=== PATIENT | female | born 1985 | race Caucasian/White ===

== ENCOUNTER 2016-09-06 10:26 | Emergency (ER) | payer MEDICAID ==
--- NOTE | 2016-09-06 11:20 | UC ---
Respiratory Complaint HPI - HPI Summary HPI Summary: chest congestion chest and back hurt to take a deep breath, coughing so hard sometimes she throws-up - History of Current Complaint Chief Complaint: UCRespiratory Stated Complaint: URI Time Seen by Provider: 09/06/16 10:44 Hx Obtained From: Patient Hx Last Menstrual Period: IUD- 08/29/16 ?: No Onset/Duration: Sudden Onset, Lasting Days, Still Present Timing: Constant Severity Initially: Moderate Severity Currently: Moderate Character: Cough: Productive Aggravating Factors: Nothing Alleviating Factors: Bronchodilator Associated Signs And Symptoms: Positive: Chills, Pleuritic Chest Pain, URI, Nasal Congestion - Allergies/Home Medications Allergies/Adverse Reactions: Allergies Allergy/AdvReac Type Severity Reaction Status Date / Time Codeine Allergy Severe Hives Verified 09/06/16 10:45 Penicillins Allergy Unknown Unknown Verified 09/06/16 10:45 Reaction Details Baclofen Allergy Unknown Verified 09/06/16 10:45 Reaction Details Home Medications: Home Medications Dextromethorphan-Phenylephrine [Vicks Dayquil Cold & Flu 10-5-325 mg] 2 tab PO PRN 09/06/16 [History] Multiple Vitamin [Multi Vitamin] 1 tab PO DAILY 09/06/16 [History Confirmed ] Sertraline HCl [Zoloft] 50 mg PO BID 09/06/16 [History Confirmed 09/06/16] PMH/Surg Hx/FS Hx/Imm Hx Previously Healthy: No Endocrine History Of: Denies: Diabetes, Thyroid Disease Cardiovascular History Of: Denies: Cardiac Disorders, Hypertension, Pacemaker/ICD, Congestive Heart Failure Respiratory History Of: Reports: COPD, Asthma GI/ History Of: Reports: Renal Disease - TRAUMATIC INJURY 05/27/14 Denies: Ulcer Neurological History Of: Reports: Migraine Psychological History Of: Reports: Anxiety, Depression, Bipolar Disorder - Surgical History Surgical History: Yes Surgery Procedure, Year, and Place: 2 C-SECTIONS. scar tissue revision following c-sections; Tonsillectomy; Bilat Tubes - Family History Known Family History: Positive: None, Other - substance abuse disorder - Social History Occupation: Unemployed Lives: With Family Alcohol Use: Rare Substance Use Type: Marijuana Substance Use Comment - Amount & Last Used: ultram Smoking Status (MU): Current Every Day Smoker Type: Cigarettes Amount Used/How Often: 1/2 PPD Length of Time of Smoking/Using Tobacco: 16+ years Have You Smoked in the Last Year: Yes Household Exposure Type: Cigarettes Cessation Counseling: Counseled 3+Min - 10 Min - Immunization History Most Recent Influenza Vaccination: 04/2016 Most Recent Tetanus Shot: 2012 Most Recent Pneumonia Vaccination: never Review of Systems Constitutional: Chills, Fatigue Skin: Negative Eyes: Negative ENT: Sore Throat, Ear Ache, Nasal Discharge Respiratory: Cough Cardiovascular: Negative Gastrointestinal: Negative Genitourinary: Negative Motor: Negative Neurovascular: Negative Musculoskeletal: Negative Neurological: Negative Psychological: Negative All Other Systems Reviewed And Are Negative: Yes Physical Exam Triage Information Reviewed: Yes Appearance: Well-Appearing, No Pain Distress, Well-Nourished Vital Signs: Initial Vital Signs Temp 98.2 F 09/06/16 10:52 Pulse 106 09/06/16 10:52 Resp 20 09/06/16 10:52 Pulse Ox 97 09/06/16 10:52 Vital Signs Reviewed: Yes Eye Exam: Normal Eyes: Positive: Conjunctiva Clear ENT Exam: Normal ENT: Positive: Normal ENT inspection, Hearing grossly normal, Pharynx normal, TMs normal. Negative: Nasal congestion, Nasal drainage, Tonsillar swelling, Tonsillar exudate, Trismus, Muffled/hoarse voice Neck exam: Normal Neck: Positive: Supple, Nontender, No Lymphadenopathy Respiratory Exam: Normal Respiratory: Positive: Chest non-tender, Lungs clear, Normal breath sounds, No respiratory distress, No accessory muscle use Cardiovascular Exam: Normal Cardiovascular: Positive: RRR, No Murmur, Pulses Normal, Brisk Capillary Refill Musculoskeletal Exam: Normal Musculoskeletal: Positive: Strength Intact, ROM Intact, No Edema Neurological Exam: Normal Neurological: Positive: Alert, Muscle Tone Normal Psychological Exam: Normal Skin Exam: Normal UC Diagnostic Evaluation - Laboratory O2 Sat by Pulse Oximetry: 97 Respiratory Course/Dx - Course Course Of Treatment: continue inhalers, add prednisone and zithromax, smoking cesation information, follow with pcp - Differential Dx/Diagnosis Differential Diagnosis/HQI/PQRI: Bronchitis, Laryngitis, Lower Resp Infection, Sinusitis Provider Diagnoses: Bronchitis, Nicotine Dependant Discharge - Discharge Plan Condition: Stable Disposition: HOME Prescriptions: Azithromycin TAB* [Zithromax TAB (Z-JAYNA) 250 mg #6 tabs] 2 tab PO .TODAY, THEN 1 DAILY #1 jayna predniSONE TAB* [Deltasone TAB*] 10 mg PO DAILY #18 tab Patient Education Materials: Cigarette Smoking and Your Health (GEN), Acute Bronchitis (ED) Referrals: Oliver Syed MD [Primary Care Provider] - If Needed
[2016-09-06 11:49] VITALS: BP 117/81
== END 2016-09-06 11:47 | disposition home or self-care (01) ==
LOC: UCEAST 10:26
DX: J40 Bronchitis, not specified as acute or chronic (principal); F31.9 Bipolar disorder, unspecified; Z88.5 Allergy status to narcotic agent; Z88.0 Allergy status to penicillin; J44.9 Chronic obstructive pulmonary disease, unspecified; J45.909 Unspecified asthma, uncomplicated; F41.9 Anxiety disorder, unspecified; F17.210 Nicotine dependence, cigarettes, uncomplicated
CPT/HCPCS: 36415; 86703; 99212; G0463

== ENCOUNTER 2016-12-03 10:18 | Emergency (ER) | payer MEDICAID ==
[2016-12-03 10:59] VITALS: BP 115/80
--- NOTE | 2016-12-03 11:03 | UC ---
UC General HPI - HPI Summary HPI Summary: Generalize edema, confusion, worsen throat pain and swelling, voice is hoarse and getting worse - History of Current Complaint Chief Complaint: UCAlteredMentalStatus Stated Complaint: CONFUSED SWELLING THROUGH OUT BODY Time Seen by Provider: 12/03/16 10:33 Hx Obtained From: Patient Onset/Duration: Gradual Onset, Lasting Weeks, Still Present, Worse Since - past day Timing: Constant Onset Severity: Moderate Current Severity: Moderate Pain Intensity: 9 Pain Location at: throat and generalized body pain Associated Signs & Symptoms: Positive: Confusion - this morning, Diarrhea, Edema , Vomiting - Allergy/Home Medications Allergies/Adverse Reactions: Allergies Allergy/AdvReac Type Severity Reaction Status Date / Time Codeine Allergy Severe Hives Verified 09/06/16 10:45 Penicillins Allergy Unknown Unknown Verified 09/06/16 10:45 Reaction Details Baclofen Allergy Unknown Verified 09/06/16 10:45 Reaction Details Home Medications: Home Medications Advair 12/03/16 [History] PMH/Surg Hx/FS Hx/Imm Hx Previously Healthy: No - Hepatitis C Endocrine History Of: Denies: Diabetes, Thyroid Disease Cardiovascular History Of: Reports: Cardiac Disorders - heart murmur Denies: Hypertension, Pacemaker/ICD, Congestive Heart Failure Respiratory History Of: Reports: COPD, Asthma GI/ History Of: Reports: Renal Disease - TRAUMATIC INJURY 05/27/14 Denies: Ulcer Neurological History Of: Reports: Migraine Psychological History Of: Reports: Anxiety, Depression, Bipolar Disorder - Surgical History Surgical History: Yes Surgery Procedure, Year, and Place: 2 C-SECTIONS. scar tissue revision following c-sections; Tonsillectomy; Bilat Tubes - Family History Known Family History: Positive: None, Other - substance abuse disorder - Social History Occupation: Employed Full-time Lives: With Family Alcohol Use: Daily Alcohol Amount: wine Substance Use Type: Marijuana Substance Use Comment - Amount & Last Used: ultram Smoking Status (MU): Heavy Every Day Tobacco Smoker Type: Cigarettes Amount Used/How Often: 1 PPD Length of Time of Smoking/Using Tobacco: 16+ years Have You Smoked in the Last Year: Yes Household Exposure Type: Cigarettes - Immunization History Most Recent Influenza Vaccination: 04/2016 Most Recent Tetanus Shot: 2013 Most Recent Pneumonia Vaccination: never Review of Systems Constitutional: Chills, Fatigue Skin: Negative Eyes: Negative ENT: Sore Throat Respiratory: Negative Cardiovascular: Negative Gastrointestinal: Vomiting, Diarrhea Genitourinary: Negative Motor: Negative Neurovascular: Negative Musculoskeletal: Arthralgia, Edema, Myalgia Neurological: Negative Psychological: Negative All Other Systems Reviewed And Are Negative: Yes Physical Exam Triage Information Reviewed: Yes Appearance: Ill-Appearing, Pain Distress, Other: - generalized edema Vital Signs: Initial Vital Signs Temp 97.7 F 12/03/16 10:25 Pulse 122 12/03/16 10:25 Resp 20 12/03/16 10:25 BP 131/91 12/03/16 10:25 Pulse Ox 99 12/03/16 10:25 Vital Signs Reviewed: Yes Eye Exam: Normal Eyes: Positive: Conjunctiva Clear ENT Exam: Normal ENT: Positive: Normal ENT inspection, Hearing grossly normal, Pharyngeal erythema, Muffled/hoarse voice. Negative: Nasal congestion, Nasal drainage, Trismus Dental Exam: Normal Neck exam: Normal Neck: Positive: Supple, Tenderness @, Enlarged Nodes @ Respiratory Exam: Normal Respiratory: Positive: Chest non-tender, Lungs clear, Normal breath sounds, No respiratory distress, No accessory muscle use Cardiovascular Exam: Normal Cardiovascular: Positive: No Murmur, Pulses Normal, Brisk Capillary Refill, Tachycardia Musculoskeletal Exam: Normal Neurological Exam: Normal Neurological: Positive: Alert, Muscle Tone Normal, Fatigued Psychological Exam: Normal Skin Exam: Normal Course/Dx - Course Course Of Treatment: transfer to hosptial by Ambulance - Differential Dx - Multi-Symptom Differential Diagnoses: Metabolic Abnormality, Sepsis Provider Diagnoses: Generalized edema, confusion, diarrhea - Physician Notifications Discussed Patient Care With: Ky REMY Time Discussed With Above Provider: 10:50 Instructed by Provider To: Transfer Discharge - Discharge Plan Condition: Guarded Disposition: [facility]
== END 2016-12-03 10:55 | disposition short-term general hospital (02) ==
LOC: UCEAST 10:18
DX: R60.9 Edema, unspecified (principal); R41.0 Disorientation, unspecified; R19.7 Diarrhea, unspecified; F17.210 Nicotine dependence, cigarettes, uncomplicated; J44.9 Chronic obstructive pulmonary disease, unspecified; F31.9 Bipolar disorder, unspecified
CPT/HCPCS: 99213; G0463

== ENCOUNTER 2016-12-03 11:12 | Emergency (ER) | payer MEDICAID, OTHER ==
[2016-12-03 12:52] LABS: Hematocrit 37 % (35-47); Hemoglobin 12.4 g/dl (12.0-16.0); Mean Corpuscular HGB Conc 34 g/dl (31-36); Mean Corpuscular Hemoglobin 32 pg (27-31); Mean Corpuscular Volume 95 fL (80-97); Mean Platelet Volume 8 um3 (7.4-10.4); Red Blood Count 3.88 10^6/ul (4.0-5.4); Red Cell Distribution Width 13 % (10.5-15); White Blood Count 13.2 10^3/ul (3.5-10.8)
[2016-12-03 12:53] LABS: Add Diff/Slide Review? Slide Review Added; Comments Flag Yes
--- NOTE | 2016-12-03 12:58 | RAD ---
Indication: Confusion. Single frontal view of the chest performed at 1248 hours was reviewed. Comparison is made with previous exam dated January 09, 2016. No mediastinal shift is noted. Heart is of normal size and configuration. Lung [place] appear clear. IMPRESSION: NO ACTIVE CARDIOPULMONARY DISEASE IS NOTED.
[2016-12-03 13:09] LABS: ALT 12 U/L (7-52); Albumin 3.4 g/dL (3.2-5.2); Alkaline Phosphatase 79 U/L (34-104); Blood Urea Nitrogen 18 mg/dL (6-24); CO2 Carbon Dioxide 22 mmol/L (22-32); Calcium 8.5 mg/dL (8.6-10.3); Chloride 107 mmol/L (101-111); Creatine Kinase 60 U/L (10-223); EGFR African American 92.7 (>60); EGFR Non-African American 72.1 (>60); Globulin 2.7 g/dL (2-4); Glucose 94 mg/dL (70-100); Sodium 136 mmol/L (133-145); Total Protein 6.1 g/dL (6.4-8.9)
[2016-12-03 13:11] LABS: Anion Gap 7 mmol/L (2-11); Potassium 3.5 mmol/L (3.5-5.0)
[2016-12-03 13:12] LABS: AST 18 U/L (13-39)
[2016-12-03] MEDS ORDERED: NS 0.9% 1000 ML* 1,000 ML IV ONE (13:34)
[2016-12-03] MEDS ORDERED: Iohexol 300* (CONTRAST) 10 ML SDV IV ONE (13:53)
[2016-12-03 13:54] LABS: Benzodiazepine Urine Screen Presumptive Positive (None Detect)
[2016-12-03 13:58] LABS: Budding Yeast Present (Absent); Urine Bacteria Absent (Absent); Urine Bilirubin Negative (Negative); Urine Glucose Negative (Negative); Urine Nitrite Negative (Negative)
[2016-12-03] MEDS ORDERED: Nicotine Inhaler* 10 MG AMP INH ONE (14:48)
[2016-12-03] MEDS ORDERED: Mouth Piece, Nicotine* 1 EACH CARTRIDGE ONE (15:06)
[2016-12-03 15:22] LABS: Acetaminophen < 15 mcg/mL; Alcohol < 10 mg/dL (<10); Salicylate < 2.50 mg/dL (<30)
[2016-12-03 15:31] LABS: TSH (Thyroid Stimulating Horm) 2.06 mcIU/mL (0.34-5.60)
--- NOTE | 2016-12-03 15:41 | RAD ---
INDICATION: 6 for 2 months with sore throat and diarrhea. Facial swelling. COMPARISON: CT chest/abdomen/pelvis May 31, 2014 TECHNIQUE: Axial source images were obtained from the thoracic inlet to the symphysis pubis following administration of oral and intravenous contrast. 96 mL Omnipaque 300 was utilized. Coronal and sagittal reconstructed images were acquired. CHEST FINDINGS: Neck/thyroid: The visualized neck to include the thyroid appear normal. Chest wall: There are no acute abnormalities of the bony thorax or chest wall. There is no supraclavicular, infraclavicular, or axillary lymphadenopathy. Lungs : There are no pulmonary parenchymal masses or infiltrates. The pulmonary interstitium appears normal. There are no endobronchial lesions. Cardiomediastinal structures: The heart is normal in size. There is no pericardial effusion. There is no evidence of aortic aneurysm or dissection. The pulmonary vessels appear normal. There is no mediastinal or hilar adenopathy. The esophagus appears normal. Pleura : There are no pleural-based masses or effusions. ABDOMINAL/PELVIC FINDINGS: Liver: The liver is enlarged with findings of hepatic steatosis. The liver is normal in size. There are no masses. There is no ductal dilatation. Gallbladder: Multiple gallstones. No thickening of the gallbladder wall or pericholecystic fluid. Spleen: The spleen is normal in size. There are no masses. Pancreas: There is no evidence of pancreatic mass or ductal dilatation. Adrenal glands: There is no evidence of adrenal mass. Kidneys: The kidneys are normal in size and position. There are prompt nephrograms and there is prompt excretion bilaterally. There are no renal parenchymal masses. There is no evidence of nephrolithiasis. Adenopathy: There is no evidence of adenopathy by size criteria. Fluid collections: There are no free or localized fluid collections. Vessels:The aorta and IVC appear normal GI tract: There are no acute CT bowel findings. There is no obstruction. The stomach and small bowel appear normal. The lower GI tract is normal. The cecum, ileocecal valve, and terminal ileum appear normal. The appendix is visualized and appear normal. Pelvic organs: The uterus and adnexa appear normal Bladder: There are no bladder masses. Abdominal and pelvic soft tissues: The extraperitoneal abdominal and pelvic soft tissues appear normal.. Osseous structures: There are no acute osseous findings. IMPRESSION: 1. No acute CT findings. No mass or inflammatory change. 2. Cholelithiasis. 3. Mild hepatic steatosis.
--- NOTE | 2016-12-03 15:41 | RAD ---
HISTORY: Facial swelling, sore throat COMPARISONS: None TECHNIQUE: Multiple contiguous axial CT scans were obtained of the neck after the administration of nonionic intravenous contrast, with coronal and sagittal multiplanar reformations. FINDINGS: BRAIN AND ORBITS: The visualized brain and orbits are normal. PARANASAL SINUSES: The visualized paranasal sinuses are clear. SALIVARY GLANDS: The parotid glands, submandibular glands, sublingual glands are normal. NASAL CAVITY/NASOPHARYNX: The nasal cavity and nasopharynx are normal. Metallic jewelry is noted ORAL CAVITY/OROPHARYNX: The patient is edentulous with resorption of the alveolar processes of the maxilla. Metallic jewelry is noted LARYNGEAL APPARATUS/HYPOPHARYNX: The laryngeal apparatus and hypopharynx are normal. UPPER AIRWAY/UPPER ESOPHAGUS: The visualized upper airway and esophagus are normal. LUNG APICES: The lung apices are clear. THYROID GLAND: The thyroid gland is normal. LYMPH NODES: There is no lymphadenopathy by size criteria. VASCULATURE: The vasculature is unremarkable. BONES AND SOFT TISSUES: No bone or soft tissue abnormalities are noted. OTHER: None. IMPRESSION: NO ACUTE CT PATHOLOGY OF THE VISUALIZED PORTION OF THE FACE AND NECK.
[2016-12-03 18:02] VITALS: BP 116/83
--- NOTE | 2016-12-03 22:10 | ED ---
Nataly Gutierrez Erika, scribed for Ney Amrbocio MD on 12/03/16 at 1408 . Complex/Multi-Sys Presentation - HPI Summary HPI Summary: Patient is a 31-year-old female presenting to the ED with a CC of confusion. Per father, patient has been increasingly confused over the past few days, worse this morning. Patient reports she only slept 2 hours last night due to insomnia. She states that for the last 3 months, she has had intermittent watery diarrhea, and that sometimes, her stools are black. Family also reports pt has been unable to tolerate PO intake - she vomits about 10 minutes after eating. About 2 months ago, she developed a sore throat and hoarse voice, and has taken 5 rounds of azithromycin plus prednisone. She reports she was diagnosed with laryngitis and that she will have a throat biopsy done on 2016. Pt reports intermittent right-sided abdominal pain which is aggravated by certain movements. She does note kidney stone about 1 month ago. Family states that for the past few days, pt has had increased facial swelling and pedal edema , as well as the confusion. Pt states she drinks 3 glasses wine/day, and used to drink significantly more. She also reports a Hx IVDA - she reports no use in 4 years. Hx sepsis. Pt is followed by Dr. Syed. - History Of Current Complaint Chief Complaint: EDAltMentalStatus Time Seen by Provider: 12/03/16 13:08 Hx Obtained From: Patient, Family/Ice Cream Maker Onset/Duration: Gradual Onset, Lasting Days, Still Present Severity Currently: Mild Associated Signs And Symptoms: Positive: Confusion, Other - facial swelling, pedal edema - Allergies/Home Medications Allergies/Adverse Reactions: Allergies Allergy/AdvReac Type Severity Reaction Status Date / Time Codeine Allergy Severe Hives Verified 09/06/16 10:45 Penicillins Allergy Unknown Unknown Verified 09/06/16 10:45 Reaction Details Baclofen Allergy Unknown Verified 09/06/16 10:45 Reaction Details Home Medications: Home Medications ALPRAZolam TAB* [Xanax TAB*] 1 mg PO Q6HR PRN MDD 4 mg 12/03/16 [History Confirmed 12/03/16] Gabapentin CAP(*) [Neurontin 400 mg CAP(*)] 800 mg PO QID 12/03/16 [History Confirmed 12/03/16] Omeprazole CAP* [Prilosec CAP* 20 MG] 40 mg PO DAILY 12/03/16 [History Confirmed 12/03/16] PMH/Surg Hx/FS Hx/Imm Hx Endocrine/Hematology History: Reports: Hx Anemia Denies: Hx Diabetes, Hx Thyroid Disease Cardiovascular History: Reports: Other Cardiovascular Problems/Disorders - Heart Murmur Denies: Hx Congestive Heart Failure, Hx Hypertension, Hx Pacemaker/ICD Respiratory History: Reports: Hx Asthma, Hx Chronic Obstructive Pulmonary Disease (COPD), Hx Seasonal Allergies, Hx Sleep Apnea GI History: Reports: Hx Gastroesophageal Reflux Disease Denies: Hx Ulcer History: Reports: Hx Acute Renal Failure, Hx Kidney Stones, Hx Renal Disease - TRAUMATIC INJURY 05/27/14, Other Problems/Disorders - PYELONEPHRITIS 2013, UTI +ECOLI Musculoskeletal History: Reports: Hx Back Problems Sensory History: Reports: Hx Contacts or Glasses Denies: Hx Hearing Aid Opthamlomology History: Reports: Hx Contacts or Glasses Neurological History: Reports: Hx Headaches, Hx Migraine, Other Neuro Impairments/Disorders - PAIN CLINIC PT Psychiatric History: Reports: Hx Anxiety, Hx Depression, Hx Panic Disorder - CLAUSTROPHOBIA, Hx Bipolar Disorder - Surgical History Surgery Procedure, Year, and Place: 2 C-SECTIONS. scar tissue revision following c-sections; Tonsillectomy; Bilat Tubes Infectious Disease History: Reports: Hx Hepatitis - See note Denies: Hx Clostridium Difficile, Hx Human Immunodeficiency Virus (HIV), Hx of Known/Suspected MRSA, Hx Shingles, Hx Tuberculosis, Hx Known/Suspected VRE, Hx Known/Suspected VRSA, History Other Infectious Disease, Traveled Outside the [place] in Last 30 Days - Family History Known Family History: Positive: Other - substance abuse disorder - Social History Alcohol Use: Daily Hx Substance Use: Yes Substance Use Type: Reports: Heroin, Marijuana Substance Use Comment - Amount & Last Used: ultram Hx Tobacco Use: Yes Smoking Status (MU): Current Every Day Smoker Type: Cigarettes Amount Used/How Often: 1/2 PPD Length of Time of Smoking/Using Tobacco: 16+ years Have You Smoked in the Last Year: Yes Review of Systems Positive: Sore Throat - with hoarse voice Gastrointestinal: Other - intermittent black stools Positive: Abdominal Pain, Vomiting, Diarrhea Positive: Edema - pedal Skin: Other - facial swelling Neurological: Other - confusion All Other Systems Reviewed And Are Negative: Yes Physical Exam Triage Information Reviewed: Yes Vital Signs On Initial Exam: Initial Vitals Temp Pulse Resp BP Pulse Ox 98.9 F 113 16 114/80 98 12/03/16 11:25 12/03/16 11:25 12/03/16 11:25 12/03/16 11:25 12/03/16 11:25 Vital Signs Reviewed: Yes Appearance: Positive: Well-Appearing, No Pain Distress Skin: Positive: Warm, Skin Color Reflects Adequate Perfusion, Dry. Negative: Jaundiced Head/Face: Positive: Normal Head/Face Inspection Eyes: Positive: Normal ENT: Positive: Pharynx normal, Muffled/hoarse voice Neck: Positive: Supple, Nontender Respiratory/Lung Sounds: Positive: Clear to Auscultation, Breath Sounds Present Cardiovascular: Positive: Tachycardia - at 113 bpm on triage Abdomen Description: Positive: Nontender, Soft Bowel Sounds: Positive: Present Musculoskeletal: Positive: Normal Neurological: Positive: Normal Psychiatric: Positive: Affect/Mood Appropriate - [place] Coma Scale Coma Scale Total: 14 Diagnostics - Vital Signs Vital Signs Temp Pulse Resp BP Pulse Ox 12/03/16 12:00 111 17 115/76 97 12/03/16 11:42 113 20 99 12/03/16 11:41 114/80 12/03/16 11:25 98.9 F 113 16 114/80 98 - Laboratory Lab Results: Lab Results 12/03/16 12/03/16 12/03/16 Range/Units 11:48 12:40 12:40 WBC 13.2 H (3.5-10.8) 10^3/ul RBC 3.88 L (4.0-5.4) 10^6/ul Hgb 12.4 (12.0-16.0) g/dl Hct 37 (35-47) % MCV 95 (80-97) fL MCH 32 H (27-31) pg MCHC 34 (31-36) g/dl RDW 13 (10.5-15) % Plt Count 283 (150-450) 10^3/ul MPV 8 (7.4-10.4) um3 Neut % (Auto) 52.7 (38-83) % Lymph % (Auto) 40.3 (25-47) % [place] % (Auto) 4.6 (1-9) % Eos % (Auto) 1.5 (0-6) % Baso % (Auto) 0.9 (0-2) % Absolute Neuts (auto) 7.0 (1.5-7.7) 10^3/ul Absolute Lymphs (auto) 5.3 H (1.0-4.8) 10^3/ul Absolute Monos (auto) 0.6 (0-0.8) 10^3/ul Absolute Eos (auto) 0.2 (0-0.6) 10^3/ul Absolute Basos (auto) 0.1 (0-0.2) 10^3/ul Absolute Nucleated RBC 0.01 10^3/ul Nucleated RBC % 0.1 Sodium 136 (133-145) mmol/L Potassium 3.5 (3.5-5.0) mmol/L Chloride 107 (101-111) mmol/L Carbon Dioxide 22 (22-32) mmol/L Anion Gap 7 (2-11) mmol/L BUN 18 (6-24) mg/dL Creatinine 0.90 (0.51-0.95) mg/dL Est GFR ( Amer) 92.7 (>60) Est GFR (Non-Af Amer) 72.1 (>60) BUN/Creatinine Ratio 20.0 (8-20) Glucose 94 (70-100) mg/dL Lactic Acid (0.5-2.0) mmol/L Calcium 8.5 L (8.6-10.3) mg/dL Magnesium 2.0 (1.9-2.7) mg/dL Total Bilirubin 0.30 (0.2-1.0) mg/dL AST 18 (13-39) U/L ALT 12 (7-52) U/L Alkaline Phosphatase 79 (34-104) U/L Ammonia (16-53) mol/L Total Creatine Kinase 60 (10-223) U/L Total Protein 6.1 L (6.4-8.9) g/dL Albumin 3.4 (3.2-5.2) g/dL Globulin 2.7 (2-4) g/dL Albumin/Globulin Ratio 1.3 (1-3) TSH Pending Beta HCG, Quant < 0.60 mIU/mL Salicylates Pending Acetaminophen Pending Serum Alcohol Pending Group A Strep Rapid Negative (Negative) 12/03/16 12/03/16 Range/Units 12:40 12:40 WBC (3.5-10.8) 10^3/ul RBC (4.0-5.4) 10^6/ul Hgb (12.0-16.0) g/dl Hct (35-47) % MCV (80-97) fL MCH (27-31) pg MCHC (31-36) g/dl RDW (10.5-15) % Plt Count (150-450) 10^3/ul MPV (7.4-10.4) um3 Neut % (Auto) (38-83) % Lymph % (Auto) (25-47) % [place] % (Auto) (1-9) % Eos % (Auto) (0-6) % Baso % (Auto) (0-2) % Absolute Neuts (auto) (1.5-7.7) 10^3/ul Absolute Lymphs (auto) (1.0-4.8) 10^3/ul Absolute Monos (auto) (0-0.8) 10^3/ul Absolute Eos (auto) (0-0.6) 10^3/ul Absolute Basos (auto) (0-0.2) 10^3/ul Absolute Nucleated RBC 10^3/ul Nucleated RBC % Sodium (133-145) mmol/L Potassium (3.5-5.0) mmol/L Chloride (101-111) mmol/L Carbon Dioxide (22-32) mmol/L Anion Gap (2-11) mmol/L BUN (6-24) mg/dL Creatinine (0.51-0.95) mg/dL Est GFR ( Amer) (>60) Est GFR (Non-Af Amer) (>60) BUN/Creatinine Ratio (8-20) Glucose (70-100) mg/dL Lactic Acid 0.9 (0.5-2.0) mmol/L Calcium (8.6-10.3) mg/dL Magnesium (1.9-2.7) mg/dL Total Bilirubin (0.2-1.0) mg/dL AST (13-39) U/L ALT (7-52) U/L Alkaline Phosphatase (34-104) U/L Ammonia 66 H (16-53) mol/L Total Creatine Kinase (10-223) U/L Total Protein (6.4-8.9) g/dL Albumin (3.2-5.2) g/dL Globulin (2-4) g/dL Albumin/Globulin Ratio (1-3) TSH Beta HCG, Quant mIU/mL Salicylates Acetaminophen Serum Alcohol Group A Strep Rapid (Negative) Result Diagrams: 12/03/16 12:40 12/03/16 12:40 Lab Statement: Any lab studies that have been ordered have been reviewed, and results considered in the medical decision making process. - Radiology CXR Radiology Interpretation Completed By: Radiologist - IMPRESSION: NO ACTIVE CARDIOPULMONARY DISEASE IS NOTED. - CT CT Neck Soft Tissue CT Interpretation Completed By: Radiologist - IMPRESSION: NO ACUTE CT PATHOLOGY OF THE VISUALIZED PORTION OF THE FACE AND NECK. CT Chest/Abd/Pelvis CT Interpretation Completed By: Radiologist - IMPRESSION: 1. No acute CT findings. No mass or inflammatory change. 2. Cholelithiasis. 3. Mild hepatic steatosis. Re-Evaluation - Re-Evaluation First Eval Re-Evaluation Time: 17:11 Comment: Discussed results with patient. Second Eval Re-Evaluation Time: 18:04 Change: Improved Comment: Discussed with patient and parents. Requests discharge. Parents state pt's confusion is improving Complex Multi-Symp Course/Dx Course Of Treatment: Ms. Cordero was brought in by her family with a concern for confusion today on top of a sore throat for a couple months and now getting hoarse and also getting swollen. Her W/U was negative except for a slightly increased ammonia and tachycardia. I wanted to give her IV NS and try to improve the tachycardia but she refused to stay. He parents agreed with me at that point that she was not confused and I was not able to hold her against her will. - Diagnoses Provider Diagnoses: Confusion, Tachycardia, Diarrhea - Physician Notifications Discussed Care Of Patient With: Dr. Patel (hospitalist) at 15:48 - discussed case to determine disposition. recommends discharge with follow up from her PCP. Discharge - Discharge Plan Condition: Stable Disposition: HOME Prescriptions: Diphenoxylat/Atrop 2.5-0.025M* [Lomotil TAB*] 1 tab PO QID #20 tab MDD 4 Patient Education Materials: Dehydration (ED) Referrals: Oliver Syed MD [Primary Care Provider] - (Please follow up next week.) The documentation as recorded by the Nataly stearns Erika accurately reflects the service I personally performed and the decisions made by me, Ney Ambrocio MD.
== END 2016-12-03 18:22 | disposition home or self-care (01) ==
LOC: ED 11:12
DX: R41.0 Disorientation, unspecified (principal); R00.0 Tachycardia, unspecified; R19.7 Diarrhea, unspecified; F17.210 Nicotine dependence, cigarettes, uncomplicated; J44.9 Chronic obstructive pulmonary disease, unspecified; K21.9 Gastro-esophageal reflux disease without esophagitis; F31.9 Bipolar disorder, unspecified
CPT/HCPCS: 36415; 70491; 71010; 71260; 74177; 80053; 80307; 80320; 80329; 81003; 81015; 82140; 82550; 83605; 83735; 84443; 84702; 85025; 87651; 96360; 99283; A9270-GY; G0480; Q9967

== ENCOUNTER 2017-03-08 14:10 | Emergency (ER) | payer OTHER ==
[2017-03-08 14:17] VITALS: BP 117/73
--- NOTE | 2017-03-08 14:40 | ED ---
Respiratory - HPI Summary HPI Summary: 31F presents with cough, sinus congestion, ear pressure since Wednesday. She has history of sore throat that was suppose to have bx but never did as she had a breathing test instead. She has history of COPD and asthma. She states she got the rest of her family sick. She states the cough makes her short of breath and causes her sore throat. She denies any fever. She denies any chest pain except when she coughs. She has a history of respiratory illness that when she gets sick makes her very ill. She has been using her inhaler every 4 hours without relief. She has been taking nyquil and dayquil without relief. - History of Current Complaint Chief Complaint: UCRespiratory Stated Complaint: COUGH CONGESTION EAR PAIN Time Seen by Provider: 03/08/17 14:22 - Allergy/Home Medications Allergies/Adverse Reactions: Allergies Allergy/AdvReac Type Severity Reaction Status Date / Time Codeine Allergy Severe Hives Verified 09/06/16 10:45 Penicillins Allergy Unknown Unknown Verified 09/06/16 10:45 Reaction Details Baclofen Allergy Unknown Verified 09/06/16 10:45 Reaction Details Home Medications: Home Medications ARIPiprazole TAB* [Abilify TAB*] 5 mg PO DAILY 03/08/17 [History Confirmed ] Sertraline* [Zoloft*] 100 mg PO DAILY 03/08/17 [History Confirmed 03/08/17] PMH/Surg Hx/FS Hx/Imm Hx Endocrine/Hematology History: Reports: Hx Anemia Denies: Hx Diabetes, Hx Thyroid Disease Cardiovascular History: Reports: Other Cardiovascular Problems/Disorders - Heart Murmur Denies: Hx Congestive Heart Failure, Hx Hypertension, Hx Pacemaker/ICD Respiratory History: Reports: Hx Asthma, Hx Chronic Obstructive Pulmonary Disease (COPD), Hx Seasonal Allergies, Hx Sleep Apnea GI History: Reports: Hx Gastroesophageal Reflux Disease Denies: Hx Ulcer History: Reports: Hx Acute Renal Failure, Hx Kidney Stones, Hx Renal Disease - TRAUMATIC INJURY 05/27/14, Other Problems/Disorders - PYELONEPHRITIS 2013, UTI +ECOLI Musculoskeletal History: Reports: Hx Back Problems Sensory History: Reports: Hx Contacts or Glasses Denies: Hx Hearing Aid Opthamlomology History: Reports: Hx Contacts or Glasses Neurological History: Reports: Hx Headaches, Hx Migraine, Other Neuro Impairments/Disorders - PAIN CLINIC PT Psychiatric History: Reports: Hx Anxiety, Hx Depression, Hx Panic Disorder - CLAUSTROPHOBIA, Hx Bipolar Disorder - Surgical History Surgery Procedure, Year, and Place: 2 C-SECTIONS. scar tissue revision following c-sections; Tonsillectomy; Bilat Tubes Infectious Disease History: Yes Infectious Disease History: Reports: Hx Hepatitis - See note Denies: Hx Clostridium Difficile, Hx Human Immunodeficiency Virus (HIV), Hx of Known/Suspected MRSA, Hx Shingles, Hx Tuberculosis, Hx Known/Suspected VRE, Hx Known/Suspected VRSA, History Other Infectious Disease, Traveled Outside the [place] in Last 30 Days - Family History Known Family History: Positive: None, Other - substance abuse disorder - Social History Alcohol Use: Daily Alcohol Amount: wine Hx Substance Use: Yes Substance Use Type: Reports: Marijuana Substance Use Comment - Amount & Last Used: denies Hx Tobacco Use: Yes Smoking Status (MU): Current Every Day Smoker Type: Cigarettes Amount Used/How Often: 1/2 PPD Length of Time of Smoking/Using Tobacco: 16+ years Have You Smoked in the Last Year: Yes Review of Systems Negative: Fever Positive: Sore Throat, Ear Ache Positive: Shortness Of Breath, Cough All Other Systems Reviewed And Are Negative: Yes Physical Exam Triage Information Reviewed: Yes Vital Signs On Initial Exam: Initial Vitals Temp Pulse Resp BP Pulse Ox 98.0 F 88 20 117/73 98 03/08/17 14:13 03/08/17 14:13 03/08/17 14:13 03/08/17 14:13 03/08/17 14:13 Vital Signs Reviewed: Yes Appearance: Positive: Ill-Appearing Skin: Positive: Warm, Dry Head/Face: Positive: Normal Head/Face Inspection Eyes: Positive: Normal, EOMI, KAMILA, Conjunctiva Clear ENT: Positive: Pharynx normal, Nasal congestion, TMs normal, Muffled/hoarse voice Neck: Positive: Supple, Nontender, No Lymphadenopathy Respiratory/Lung Sounds: Positive: Breath Sounds Present, Other - upper resp sounds on exam, neg egophony Cardiovascular: Positive: Normal, RRR Diagnostics - Vital Signs Vital Signs Temp Pulse Resp BP Pulse Ox 03/08/17 14:13 98.0 F 88 20 117/73 98 - Laboratory Lab Statement: Any lab studies that have been ordered have been reviewed, and results considered in the medical decision making process. Disposition - Course Course Of Treatment: 31F presents with cough, sinus congestion, ear pressure since Wednesday. She has history of sore throat that was suppose to have bx but never did as she had a breathing test instead. She has history of COPD and asthma. She states she got the rest of her family sick. She states the cough makes her short of breath and causes her sore throat. She denies any fever. She denies any chest pain except when she coughs. She has a history of respiratory illness that when she gets sick makes her very ill. She has been using her inhaler every 4 hours without relief. on exam has sinus tenderness and congestion present. on exam has congestion in lungs, neg egophony. will treat with steriod, levaquin, flonase, and tessalon. patient understands and agrees with plan. - Differential Dx - Cardiopulmonary Differential Diagnoses - Cardiopulmonary: Asthma, Bronchitis, Lower Resp Infection - Diagnoses Provider Diagnoses: Upper respiratory infection Discharge - Discharge Plan Condition: Good Disposition: HOME Prescriptions: Benzonatate CAP* [Tessalon 100 MG CAP*] 100 mg PO TID #15 cap Fluticasone NASAL * [Flonase *] 1 spray BOTH NARES DAILY #1 bottle Levofloxacin TAB* [Levaquin TAB*] 500 mg PO DAILY #7 tab predniSONE TAB* [Deltasone TAB*] 60 mg PO DAILY #15 tab Patient Education Materials: Upper Respiratory Infection (ED) Referrals: Oliver Syed MD [Primary Care Provider] - Additional Instructions: Use Tessalon three times a day for cough Use inhaler one puff every 4 hours for cough as needed Take Levaquin once a day for 7 days Take steroid three tablets once a day for 5 days Take Tylenol and ibuprofen for pain/fever every 6 hours Follow up with primary within 5 days Return to ED if develop any new or worsening symptoms
== END 2017-03-08 14:49 | disposition home or self-care (01) ==
LOC: UCEAST 14:10
DX: J06.9 Acute upper respiratory infection, unspecified (principal); D64.9 Anemia, unspecified; R01.1 Cardiac murmur, unspecified; J44.9 Chronic obstructive pulmonary disease, unspecified; G47.33 Obstructive sleep apnea (adult) (pediatric); K21.9 Gastro-esophageal reflux disease without esophagitis; G43.909 Migraine, unspecified, not intractable, without status migrainosus; F41.9 Anxiety disorder, unspecified; F32.9 Major depressive disorder, single episode, unspecified; F40.240 Claustrophobia; F17.210 Nicotine dependence, cigarettes, uncomplicated; Z88.5 Allergy status to narcotic agent; Z87.442 Personal history of urinary calculi; Z88.0 Allergy status to penicillin
CPT/HCPCS: 99212; G0463

== ENCOUNTER 2017-06-17 15:33 | Emergency (ER) | payer OTHER ==
[2017-06-17 16:21] VITALS: BP 117/87
--- NOTE | 2017-06-17 17:11 | UC ---
Skin Complaint HPI - HPI Summary HPI Summary: TWO DAYS OF RED FIRM RASH ON LEFT (ANTEROMEDIAL) LEG. THREE WEEKS AGO, DOG STEPPED ON LEG, CAUSING BRUISE. NOW AREA IS RED SWOLLEN AND TENDER. ALSO DEVELOPING RED RASH ON SIDE OF MOUTH. - History of Current Complaint Chief Complaint: UCRash Time Seen by Provider: 06/17/17 16:49 Stated Complaint: SKIN COMPLAINT Hx Obtained From: Patient, Family/Iron [employer]er Hx Last Menstrual Period: 06/17/17 Onset/Duration: Gradual Onset, Lasting Days, Worse Since - TWO DAYS Skin Exposure Onset/Duration: Weeks Ago, Worse Since: - TWO DAYS Onset Severity: Mild Current Severity: Mild Character: Redness, Raised, Painful Aggravating Factor(s): Touch Associated Signs & Symptoms: Positive: Fever, Rash, Tenderness, Red Streaks. Negative: Wheezing, Chest Pain, Hoarseness, Throat Tightening, Drainage, Joint Swelling Related History: Trauma - Allergy/Home Medications Allergies/Adverse Reactions: Allergies Allergy/AdvReac Type Severity Reaction Status Date / Time Codeine Allergy Severe Hives Verified 09/06/16 10:45 Penicillins Allergy Unknown Swelling Verified 06/17/17 16:06 Of Face,Lips,& Throat Baclofen Allergy See Comment Verified 06/17/17 16:06 Home Medications: Home Medications Fluticasone-Salmeterol 100-50* [Advair Diskus 100-50*] 2 puff BID 06/17/17 [ History Confirmed 06/17/17] Review of Systems Constitutional: Fever Skin: Other - RED TENDER AREA LEFT ANTERIOR LEG Eyes: Negative ENT: Negative Respiratory: Negative Cardiovascular: Negative Gastrointestinal: Negative Genitourinary: Negative Motor: Negative Neurovascular: Negative Musculoskeletal: Negative Neurological: Negative Psychological: Negative Is Patient Immunocompromised?: No All Other Systems Reviewed And Are Negative: Yes PMH/Surg Hx/FS Hx/Imm Hx Previously Healthy: Yes - Surgical History Surgical History: Yes Surgery Procedure, Year, and Place: 2 C-SECTIONS. scar tissue revision following c-sections; Tonsillectomy; Bilat eustachian Tubes - Family History Known Family History: Positive: None, Other - substance abuse disorder - Social History Lives: With Family Alcohol Use: Daily Alcohol Amount: 4 beers/ day Substance Use Type: Marijuana Substance Use Comment - Amount & Last Used: denies Smoking Status (MU): Current Every Day Smoker Type: Cigarettes Amount Used/How Often: 1 PPD Length of Time of Smoking/Using Tobacco: 16+ years Have You Smoked in the Last Year: Yes Household Exposure Type: Cigarettes Cessation Counseling: Patient Advised to Stop - Immunization History Most Recent Influenza Vaccination: 04/2016 Most Recent Tetanus Shot: 2012 Most Recent Pneumonia Vaccination: never Physical Exam Triage Information Reviewed: Yes Appearance: Well-Appearing, No Pain Distress, Well-Nourished Vital Signs: Initial Vital Signs Temp 100.4 F 06/17/17 16:11 Pulse 106 06/17/17 16:11 Resp 18 06/17/17 16:11 BP 117/87 06/17/17 16:11 Pulse Ox 99 06/17/17 16:11 Vital Signs Reviewed: Yes Eye Exam: Normal ENT Exam: Normal ENT: Positive: Normal ENT inspection Dental Exam: Normal Neck exam: Normal Neck: Positive: Supple, Nontender, No Lymphadenopathy Respiratory Exam: Normal Respiratory: Positive: Chest non-tender, Lungs clear, Normal breath sounds, No respiratory distress, No accessory muscle use Cardiovascular Exam: Normal Cardiovascular: Positive: RRR, No Murmur, Pulses Normal, Brisk Capillary Refill Abdominal Exam: Normal Abdomen Description: Positive: Nontender, No Organomegaly Musculoskeletal Exam: Normal Musculoskeletal: Positive: Strength Intact Neurological Exam: Normal Psychological Exam: Normal Skin: Positive: Other - 4CM X 2CM INDURATED MACULAR ERYTHEMATOUS LESION LEFT ANTERIOMEDIAL LEG; SMALL 0.5CM X 0.5CM ERYTHEMATOUS AREA RIGHT CHIN Course/Dx - Differential Diagnoses - Skin Complaint Differential Diagnoses: Cellulitis, Contact Dermatitis, Impetigo, Local Allergic Reaction, MRSA, Systemic Illness, Tick Born Illness, Tinea, Urticaria - Diagnoses Provider Diagnoses: CELLULITIS Discharge - Discharge Plan Condition: Stable Disposition: HOME Prescriptions: DOXYcycline CAP(*) [DOXYcycline 100MG CAP(*)] 100 mg PO BID #20 cap Patient Education Materials: Cellulitis (ED) Referrals: Oliver Syed MD [Primary Care Provider] - Images Front/Back of Body, Lg ([place]): 1 - 4CM X 2CM INDURATED MACULAR ERYTHEMATOUS LESION LEFT ANTERIOMEDIAL LEG
== END 2017-06-17 17:19 | disposition home or self-care (01) ==
LOC: UCEAST 15:33
DX: L03.116 Cellulitis of left lower limb (principal); L03.211 Cellulitis of face; Z88.5 Allergy status to narcotic agent; Z88.0 Allergy status to penicillin; F17.210 Nicotine dependence, cigarettes, uncomplicated
CPT/HCPCS: 99212; G0463

== ENCOUNTER 2018-01-06 21:23 | Emergency (ER) | payer OTHER ==
[2018-01-06 21:38] VITALS: BP 108/77
--- NOTE | 2018-01-06 22:00 | UC ---
Throat Pain/Nasal Lele HPI - HPI Summary HPI Summary: Patient is a 32-year-old female with history of bipolar, COPD and a heavy smoker. She presents with 2 days sore throat with patchy exudates to the bilateral tonsils. Denies any shortness breath, cough, chest pain, ear pain. Endorses some headaches, but has migraines at baseline. Has not been taking any medication for relief, however she is on a multitude of medications for bipolar and ADHD as well as depression. She endorses hoarse voice, denies dysphagia but endorses odynophagia. Denies any fevers, sweats, chills. - History of Current Complaint Hx Obtained From: Patient Hx Last Menstrual Period: 11/28/17 ?: No Onset/Duration: Sudden Onset Severity: Moderate Pain Intensity: 7 Pain Scale Used: 0-10 Numeric Associated Signs & Symptoms: Positive: Dysphagia <Katelyn Chaney - Last Filed: 01/06/18 22:07> <Jane Villarreal - Last Filed: 01/06/18 22:40> - History of Current Complaint Chief Complaint: UCRespiratory Stated Complaint: SORE THROAT Time Seen by Provider: 01/06/18 21:32 - Allergies/Home Medications Allergies/Adverse Reactions: Allergies Allergy/AdvReac Type Severity Reaction Status Date / Time MS Codeine [Codeine] Allergy Severe Hives Verified 01/06/18 21:38 MS Penicillins [Penicillins] Allergy Unknown Swelling Verified 01/06/18 21:38 Of Face,Lips,& Throat MS Baclofen [Baclofen] Allergy See Comment Verified 01/06/18 21:38 Home Medications: Home Medications Amphetamine MIXED SALTS TAB* [Adderall TAB*] 30 mg PO BID 01/06/18 [History Confirmed 01/06/18] Lurasidone HCl [Latuda] 60 mg PO BEDTIME 01/06/18 [History Confirmed 01/06/18] PMH/Surg Hx/FS Hx/Imm Hx Previously Healthy: Yes - Surgical History Surgical History: Yes Surgery Procedure, Year, and Place: 2 C-SECTIONS. scar tissue revision following c-sections; Tonsillectomy; Bilat eustachian Tubes - Family History Known Family History: Positive: None, Other - substance abuse disorder - Social History Occupation: Unemployed Lives: With Family Alcohol Use: None Alcohol Amount: 4 beers/ day Substance Use Type: Marijuana Substance Use Comment - Amount & Last Used: daily Smoking Status (MU): Heavy Every Day Tobacco Smoker Type: Cigarettes Amount Used/How Often: 1 PPD Length of Time of Smoking/Using Tobacco: 16+ years Have You Smoked in the Last Year: Yes Household Exposure Type: Cigarettes - Immunization History Most Recent Influenza Vaccination: 04/2016 Most Recent Tetanus Shot: 2012 Most Recent Pneumonia Vaccination: never <Katelyn Chaney - Last Filed: 01/06/18 22:07> Review of Systems Constitutional: Negative Skin: Negative Eyes: Negative ENT: Sore Throat Respiratory: Negative Cardiovascular: Negative Motor: Negative Neurovascular: Negative Neurological: Negative Is Patient Immunocompromised?: No All Other Systems Reviewed And Are Negative: Yes <Katelyn Chaney - Last Filed: 01/06/18 22:07> Physical Exam Triage Information Reviewed: Yes Appearance: Well-Appearing, Well-Nourished Vital Signs: Initial Vital Signs Temp 98 F 01/06/18 21:31 Pulse 107 01/06/18 21:31 Resp 01/06/18 21:31 BP 108/77 01/06/18 21:31 Pulse Ox 100 01/06/18 21:31 Vital Signs Reviewed: Yes Eye Exam: Normal ENT: Positive: Pharyngeal erythema, Tonsillar exudate Neck exam: Normal Neck: Positive: Supple, No Lymphadenopathy Respiratory Exam: Normal Respiratory: Positive: Chest non-tender, Lungs clear Cardiovascular Exam: Normal Cardiovascular: Positive: RRR Musculoskeletal Exam: Normal Musculoskeletal: Positive: Strength Intact Psychological Exam: Normal Psychological: Positive: Normal Response To Family Skin Exam: Normal <Katelyn Chaney - Last Filed: 01/06/18 22:07> Vital Signs: Initial Vital Signs Temp 98 F 01/06/18 21:31 Pulse 107 01/06/18 21:31 Resp 18 01/06/18 21:31 BP 108/77 01/06/18 21:31 Pulse Ox 100 01/06/18 21:31 <Jane Villarreal - Last Filed: 01/06/18 22:40> Throat Pain/Nasal Course/Dx - Course Course Of Treatment: During the course of treatment, the patient's evaluated for sore throat. She has been having symptoms 2 days. White patchy exudates to the bilateral tonsils with pharyngeal erythema. Strep swab obtained and is negative. D/t white patchy exudates, feeling fatigued, and high risk as she has COPD. She is given azithromycin for patchy infiltrates for a possible bacterial component. - Differential Dx/Diagnosis Provider Diagnoses: Pharyngitis with exudates <Katelyn Chaney - Last Filed: 01/06/18 22:07> Discharge - Sign-Out/Discharge Documenting (check all that apply): Discharge/Admit/Transfer - Billing Disposition and Condition Condition: STABLE Disposition: Home <Katelyn Chaney - Last Filed: 01/06/18 22:07> - Billing Disposition and Condition Condition: STABLE Disposition: Home <Jane Villarreal - Last Filed: 01/06/18 22:40> - Discharge Plan Condition: Stable Disposition: HOME Prescriptions: Azithromycin TAB* [Zithromax TAB (Z-JAYNA) 250 mg #6 tabs] 250 mg PO DAILY #4 tab Magic Mouth Was-KEL/MAAL/LIDO* 5 ml SWISH SPIT QID #100 ml Patient Education Materials: Pharyngitis (ED) Referrals: No Primary Care Phys,NOPCP [Primary Care Provider] - Additional Instructions: Take 1 tab daily x 4 days magic mouth was swish and spit four times daily x 2-3 days Tylenol and ibuprofen as needed for discomfort Attestation Statement User Type: Provider - I was available for consult. This patient was seen by the TEJ. The patient was not presented to, seen by, or examined by me. -[place] <Jane Villarreal - Last Filed: 01/06/18 22:40>
[2018-01-06] MEDS ORDERED: Azithromycin TAB* 250 MG PO ONE (22:03)
== END 2018-01-06 22:25 | disposition home or self-care (01) ==
LOC: UCEAST 21:23
DX: J02.9 Acute pharyngitis, unspecified (principal); J44.9 Chronic obstructive pulmonary disease, unspecified; F17.210 Nicotine dependence, cigarettes, uncomplicated; Z88.6 Allergy status to analgesic agent; F31.9 Bipolar disorder, unspecified
CPT/HCPCS: 87651; 99212; A9270-GY; G0463

== ENCOUNTER 2018-11-27 11:27 | Emergency (ER) | payer OTHER ==
[2018-11-27 11:50] VITALS: BP 113/87
--- NOTE | 2018-11-27 11:54 | UC ---
Skin Complaint HPI - HPI Summary HPI Summary: cough x 1.5 weeks, runny nose - dx with sinus infection by PCP, given z-michael - did not finish the rx. developed rash on lower legs 2-3 days ago, now spread to abdomen. has pain in mouth denied any fevers at home. - History of Current Complaint Chief Complaint: UCGeneralIllness Time Seen by Provider: 11/27/18 11:45 Stated Complaint: RASH, AND COUGH Hx Obtained From: Patient Hx Last Menstrual Period: last month ?: No Onset/Duration: Gradual Onset, Lasting Days Skin Exposure Onset/Duration: Days Ago Timing: Constant Pain Intensity: 7 Location: Diffuse Character: Swelling, Pruritus, Redness, Raised - Allergy/Home Medications Allergies/Adverse Reactions: Allergies Allergy/AdvReac Type Severity Reaction Status Date / Time baclofen Allergy see note Verified 11/27/18 11:52 codeine Allergy Hives Verified 11/27/18 11:52 Penicillins Allergy Swelling Verified 11/27/18 11:52 Of Face,Lips,& Throat PMH/Surg Hx/FS Hx/Imm Hx Previously Healthy: No - Hep C - Surgical History Surgical History: Yes Surgery Procedure, Year, and Place: 2 C-SECTIONS. scar tissue revision following c-sections; Tonsillectomy; Bilat eustachian Tubes - Family History Known Family History: Positive: None, Other - substance abuse disorder - Social History Alcohol Use: None Alcohol Amount: 4 beers/ day Substance Use Type: Marijuana Substance Use Comment - Amount & Last Used: daily Smoking Status (MU): Heavy Every Day Tobacco Smoker Type: Cigarettes Amount Used/How Often: 1-1.5 PPD Length of Time of Smoking/Using Tobacco: 16+ years Have You Smoked in the Last Year: Yes Household Exposure Type: Cigarettes - Immunization History Most Recent Influenza Vaccination: 04/2016 Most Recent Tetanus Shot: 2013 Most Recent Pneumonia Vaccination: never Review of Systems All Other Systems Reviewed And Are Negative: Yes Is Patient Immunocompromised?: No Physical Exam Triage Information Reviewed: Yes Vital Signs: Initial Vital Signs Temp 98.1 F 11/27/18 11:41 Pulse 98 11/27/18 11:41 Resp 16 11/27/18 11:41 BP 113/87 11/27/18 11:41 Pulse Ox 99 11/27/18 11:41 Course/Dx - Course Course Of Treatment: hx obtained, exam performed ,meds reviewed, Discharge - Discharge Plan Referrals: No Primary Care Phys,NOPCP [Primary Care Provider] -
--- NOTE | 2018-11-27 12:15 | UC ---
Skin Complaint HPI - HPI Summary HPI Summary: itchy rash on legs--not raised small blanching red areas--, also was on zithromax and now has painful mouth ( also uses a steroid inhaler) Nasal drip and sinus congestion continues - History of Current Complaint Chief Complaint: UCGeneralIllness Time Seen by Provider: 11/27/18 11:45 Stated Complaint: RASH, AND COUGH Hx Obtained From: Patient Hx Last Menstrual Period: last month ?: No Onset/Duration: Gradual Onset, Lasting Weeks, Still Present, Worse Since - past 2 days Timing: Constant Pain Intensity: 7 Pain Scale Used: 0-10 Numeric Location: Diffuse - rash on legs Aggravating Factor(s): Nothing Alleviating Factor(s): Nothing Associated Signs & Symptoms: Positive: Rash - Allergy/Home Medications Allergies/Adverse Reactions: Allergies Allergy/AdvReac Type Severity Reaction Status Date / Time baclofen Allergy see note Verified 11/27/18 11:52 codeine Allergy Hives Verified 11/27/18 11:52 Penicillins Allergy Swelling Verified 11/27/18 11:52 Of Face,Lips,& Throat Home Medications: Home Medications ARIPiprazole TAB* [Abilify TAB*] 10 mg PO DAILY 11/27/18 [History Confirmed ] Iron 90 mg PO 11/27/18 [History] Sertraline* [Zoloft*] 100 mg PO DAILY 11/27/18 [History Confirmed 11/27/18] lamoTRIgine [Lamictal] 100 mg PO DAILY 11/27/18 [History Confirmed 11/27/18] PMH/Surg Hx/FS Hx/Imm Hx Previously Healthy: No Respiratory History: Asthma GI/ History: Gastroesophageal Reflux Psychological History: Anxiety, Depression - Surgical History Surgical History: Yes Surgery Procedure, Year, and Place: 2 C-SECTIONS. scar tissue revision following c-sections; Tonsillectomy; Bilat eustachian Tubes - Family History Known Family History: Positive: None, Other - substance abuse disorder - Social History Occupation: Disabled Lives: With Family Alcohol Use: None Alcohol Amount: 4 beers/ day Substance Use Type: Marijuana Substance Use Comment - Amount & Last Used: daily Smoking Status (MU): Heavy Every Day Tobacco Smoker Type: Cigarettes Amount Used/How Often: 1-1.5 PPD Length of Time of Smoking/Using Tobacco: 16+ years Have You Smoked in the Last Year: Yes Household Exposure Type: Cigarettes Cessation Counseling: Patient Advised to Stop - Immunization History Most Recent Influenza Vaccination: 04/2016 Most Recent Tetanus Shot: 2012 Most Recent Pneumonia Vaccination: never Review of Systems All Other Systems Reviewed And Are Negative: Yes Constitutional: Positive: Fatigue Skin: Positive: Rash Eyes: Positive: Negative ENT: Positive: Other - mouth pain aand burning Respiratory: Positive: Negative Cardiovascular: Positive: Negative Gastrointestinal: Positive: Negative Genitourinary: Positive: Negative Motor: Positive: Negative Neurovascular: Positive: Negative Musculoskeletal: Positive: Negative Neurological: Positive: Negative Psychological: Positive: Negative Is Patient Immunocompromised?: No Physical Exam Triage Information Reviewed: Yes Appearance: Well-Appearing, No Pain Distress, Well-Nourished Vital Signs: Initial Vital Signs Temp 98.1 F 11/27/18 11:41 Pulse 98 11/27/18 11:41 Resp 16 11/27/18 11:41 BP 113/87 11/27/18 11:41 Pulse Ox 99 11/27/18 11:41 Vital Signs Reviewed: Yes Eye Exam: Normal Eyes: Positive: Conjunctiva Clear ENT Exam: Normal ENT: Positive: Normal ENT inspection, Hearing grossly normal, Pharyngeal erythema - with white film. Negative: Trismus, Muffled voice, Hoarse voice Dental Exam: Other - dentures Neck exam: Normal Neck: Positive: Supple, Nontender Respiratory Exam: Normal Respiratory: Positive: Chest non-tender, Lungs clear, Normal breath sounds, No respiratory distress, No accessory muscle use Cardiovascular Exam: Normal Cardiovascular: Positive: RRR, No Murmur, Pulses Normal, Brisk Capillary Refill Musculoskeletal Exam: Normal Musculoskeletal: Positive: Strength Intact, ROM Intact, No Edema Neurological Exam: Normal Neurological: Positive: Alert, Muscle Tone Normal Psychological Exam: Normal Skin: Positive: Rashes Course/Dx - Course Course Of Treatment: nystatin, flonase, lidex cream---referrals made for pcp at patients request-- - Diagnoses Provider Diagnosis: Thrush, oral, Allergic rhinitis due to allergen, Folliculitis Discharge - Sign-Out/Discharge Documenting (check all that apply): Patient Departure All imaging exams completed and their final reports reviewed: No Studies - Discharge Plan Condition: Stable Disposition: HOME Prescriptions: Fluocinonide 0.05% CM (NF) [Lidex 0.05% CREAM (NF)] 1 applic TOPICAL BID #45 gm Fluticasone NASAL SPRAY 50MCG* [Flonase NASAL SPRAY 50MCG*] 2 spray BOTH NARES DAILY #1 btl Nystatin SUSPENSION ORAL SYR* 500,000 units PO QID #200 ml Patient Education Materials: Oral Candidiasis (ED), Allergic Rhinitis (DC), Folliculitis (ED) Referrals: [facility] [Outside] - If Needed Ganesh Beltrán MD [Medical Doctor] - If Needed - Billing Disposition and Condition Condition: STABLE Disposition: Home - Attestation Statements Provider Attestation: I did not see or exam this patient. I was available for consult.
== END 2018-11-27 12:20 | disposition home or self-care (01) ==
LOC: UCEAST 11:27
DX: B37.0 Candidal stomatitis (principal); J30.89 Other allergic rhinitis; L73.9 Follicular disorder, unspecified; F41.9 Anxiety disorder, unspecified; F32.9 Major depressive disorder, single episode, unspecified; Z88.5 Allergy status to narcotic agent; Z88.0 Allergy status to penicillin; Z88.8 Allergy status to other drugs, medicaments and biological substances; F17.210 Nicotine dependence, cigarettes, uncomplicated
CPT/HCPCS: 99212; G0463